=== PATIENT | female | born 1935 | race Caucasian/White ===

== ENCOUNTER 2016-06-19 11:34 | Outpatient (CLI) ==
[2012-11-01 11:54] VITALS: TEMP 96.9
[2016-06-19 12:08] VITALS: BMI 33.7
== END 2016-06-19 11:35 ==
LOC: AMBL 11:34
PROVIDERS: ATTEND Internal Medicine
DX: S09.90XA Unspecified injury of head, initial encounter (principal); W19.XXXA Unspecified fall, initial encounter; Y92.129 Unspecified place in nursing home as the place of occurrence of the external cause; F03.90 Unspecified dementia, unspecified severity, without behavioral disturbance, psychotic disturbance, mood disturbance, and anxiety

== ENCOUNTER 2016-06-19 11:49 | Emergency (ER) ==
[2016-06-19 12:08] VITALS: BP 122/86; TEMP 98.8; BMI 33.7
--- NOTE | 2016-06-19 12:54 | CT ---
EXAM: CT Head HISTORY: Pain, fall COMPARISON: One 06/30/2015 TECHNIQUE: CT head performed without contrast FINDINGS: There is no mass effect, midline shift, or intracranial hemmorhage. Booker white different iation is preserved. There is no extra-axial collection. The ventricles, sulci, and basal cisterns are patent and symmetric. There is chronic ischemic disease of the white matter and cerebral volum e loss. There is no depressed calvarial fracture. The mastoid air cells are clear. The visualized paranasal sinuses are clear. There are intracranial atherosclerotic calcifications. Small left parie compa scalp hematoma. IMPRESSION: 1. No acute intracranial abnormality. 2. Small left parietal scalp hematoma. No depressed calvarial fracture. 3. Chronic ischemic disease of the white matter and cerebral volume loss.
--- NOTE | 2016-06-19 12:55 | CT ---
EXAM: CT thoracic spine without contrast. HISTORY: Back pain. COMPARISON: 05/12/2015. TECHNIQUE: Multiple axial images of the thoracic spine were obtained without intravenous contrast. Images were reformatted in the sagittal and coronal planes. FINDINGS: Old mild superior endplate compression deformity of T8 is stable. Vertebral body heights are otherwise normal. Alignment is maintained. There is multilevel loss of disc height with assoc iated endplate osteophyte formation, greater in the lower thoracic spine. No significant central ca nal stenosis detected. Pacemaker leads are partially imaged. Visualized lungs are clear. Atherosc lerotic calcifications are present. IMPRESSION: 1. No acute abnormality of the thoracic spine. 2. Stable old T8 compression deformity. 3. Multilevel degenerative disc disease.
--- NOTE | 2016-06-19 13:04 | CT ---
EXAM: CT cervical spine without contrast. HISTORY: Neck pain post fall COMPARISON: CT cervical spine 05/12/2015 TECHNIQUE: Serial axial images of the cervical spine were obtained from the skull base through the lung apices without contrast. These were viewed in multiple planes. FINDINGS: There is no acute compression fracture or subluxation. There is mild disc space narrowin g and anterior posterior disc osteophyte formation noted at C4 through C7. There is scattered multi level facet arthropathy. The odontoid process demonstrates no displaced fracture with scattered deg enerative disease at its articulation with C1 ring. There is stable levoscoliosis. C2-C3: Small broad-based disc bulge with no central or neural foraminal narrowing. C3-C4: Central disc protrusion with no central or neural foraminal narrowing. C4-C5: Posterior disc osteophyte and mild facet arthropathy with no central or neural foraminal madeline rowing. C5-C6: Posterior disc osteophyte and facet arthropathy contribute to mild to moderate left neural f oraminal narrowing. C6-C7: Posterior disc osteophyte and facet arthropathy with mild left neural foraminal narrowing. The soft tissues are unremarkable. IMPRESSION: 1. No acute compression fracture or subluxation of the cervical spine. 2. Stable levoscoliosis. 3. Multilevel degenerative disease with no greater than mild to moderate narrowing at any level.
--- NOTE | 2016-06-19 13:05 | ED.PDOC ---
General ED Provider: Dr. KAN CALL Chief Complaint: Fall Stated Complaint: fall head and back pain Time Seen by Physician: 12:00 Mode of Arrival: Ambulance Information Source: Patient, Long-Term, EMT Exam Limitations: No limitations Primary Care Provider: BERNA GIBBONS Nursing and Triage Documentation Reviewed and Agree: Yes Trauma/Injury Complaint Exam - Trauma Complaint/Exam Location of Pain or Injury: Reports: Head, Neck, Back Mechanism of Injury: Reports: Fall (ground level) Onset/Duration: today Symptoms Are: Still present Initial Severity: Mild Current Severity: Mild Character: Reports: Aching Aggravating: Reports: None Alleviating: Reports: None Associated Signs and Symptoms: Denies: LOC, Confusion, Memory loss, Lethargy, Vomiting, Bleeding, Bruising, Swelling, Extremity disuse, Painful respiration, Hoarseness, Dysphagia, Hemoptysis, Significant blood loss Penetrating Injury Risk Factors: Reports: None Related Surgical History: Reports: None Nexus Low Risk Criteria: No evidence of intoxicat., No Altered LOC, No focal neuro deficit, No distracting injuries Immobilization Removed Post Exam: No Glascow Coma Scale (see protocol): 15 Trauma Findings: Absent: [place] eyes, Hemotympanum, Nasal deformity, Dental tenderness, Dental malocclusion, Neck tenderness, Neck spasm, Crepitus, Airway obstructed, Labored respirations, Decreased breath sounds, Muffled heart sounds , Weak pulses, Absent pulses, Abdominal distention, Pelvic tenderness, Pelvic instability Review of Systems - Review Of Systems Constitutional: Reports: No symptoms Eyes: Reports: No symptoms Ears, Nose, Mouth, Throat: Reports: No symptoms Respiratory: Reports: No symptoms Cardiac: Reports: No symptoms GI: Reports: No symptoms : Reports: No symptoms Musculoskeletal: Reports: Back pain, Neck pain Skin: Reports: No symptoms Neurological: Reports: Headache Endocrine: Reports: No symptoms Hematologic/Lymphatic: Reports: No symptoms All Other Systems: Reviewed and Negative Past Medical History - Past Medical History Endocrine: Reports: DM 2 Cardiovascular: Reports: CHF Respiratory: Reports: None Hematological: Reports: None Gastrointestinal: Reports: None Genitourinary: Reports: None Neuro/Psych: Reports: CVA, Dementia Musculoskeletal: Reports: Arthritis Cancer: Reports: Other Last Menstrual Period: N/A Other Pertinent Past Medical History: pacerf - Surgical History General Surgical History: Reports: Hysterectomy, Orthopedic, Back Surgery, Other - Family History Family History: Reports: Unknown - Social History Smoking Status: Former smoker Hx Substance Use: No Alcohol Screening: None Physical Exam - Physical Exam Appearance: Well-appearing, No pain distress, Well-nourished Eyes: KIERSTEN, EOMI, Conjunctiva clear ENT: Ears normal, Nose normal, Oropharynx normal Respiratory: Airway patent, Breath sounds clear, Breath sounds equal, Respirations nonlabored Cardiovascular: RRR, Pulses normal, No rub, No murmur GI/: Soft, Nontender, No masses, Bowel sounds normal, No Organomegaly Musculoskeletal: Normal strength, ROM intact, No edema, No calf tenderness Skin: Warm, Dry, Normal color Neurological: Sensation intact, Motor intact, Reflexes intact, Cranial nerves intact, Alert, Oriented Psychiatric: Affect appropriate, Mood appropriate Interpretation - Radiology Interpretation Radiology Interpretation By: Radiologist Critical Care Note - Critical Care Note Total Time (mins): 0 Course - Course Orders, Labs, Meds: Orders Category Date Time Status CT CERVICAL SPINE W/O CONTRAST Stat RADS 06/19/16 12:[address] HEAD W/O CONTRAST Stat RADS 06/19/16 12:[address] LUMBAR SPINE W/O CONTRAST Stat RADS 06/19/16 12:[address] THORACIC SPINE W/O CONTRAST Stat RADS 06/19/16 12:03 Completed Vital Signs: Temp Pulse Resp BP Pulse Ox 06/19/16 11:50 98.8 F 93 H 16 122/86 97 Departure - Departure Time of Disposition: 14:00 Disposition: HOME SELF-CARE Discharge Problem: Chronic neck and back pain Instructions: Neck Pain (ED), Acute Low Back Pain (ED), Chronic Back Pain (ED) Condition: Good Pt referred to PMD for follow-up: No Additional Instructions: Please call your Family Physician as soon as possible to schedule a follow-up appointment. Allergies/Adverse Reactions: Allergies codeine Adverse Reaction (Verified 06/19/16 12:08) Home Medications: Ambulatory Orders Acetaminophen [Tylenol] 2 tab PO Q4H PRN 10/27/12 Aspirin [Emeka Chewable] 81 mg PO DAILY 10/27/12 Calcium Carbonate/Vitamin D3 [Calcium 600 + Vit D 400 Tablet] 1 each PO BID Citalopram Hydrobromide [Citalopram HBr] 20 mg PO DAILY 10/27/12 Furosemide [Lasix Tab] 40 mg PO QDAC 10/27/12 Galantamine HBr [Razadyne ER] 16 mg PO DAILY 10/27/12 Metoprolol Tartrate [Lopressor] 25 mg PO BID 10/27/12 Ferrous Sulfate [Iron] 325 mg PO BID 01/28/13 Potassium Chloride [K-Dur] 10 meq PO DAILY 01/28/13 Insulin Glargine,Hum.rec.anlog [Lantus] 48 unit SUBCUT BEDTIME 12/26/13 Multivitamins,Therapeutic [Thera-Tabs] 1 each PO DAILY 12/26/13 Memantine HCl [Namenda Xr] 28 mg PO DAILY #30 cap.spr.24 12/27/13 Sucralfate [Carafate] 1 gm PO BID 01/03/14 Gabapentin [Neurontin] 100 mg PO TID #1 capsule 01/04/14 Metolazone [Zaroxolyn] 2.5 mg PO MOWEFR PRN #1 tablet 01/04/14 Guaifenesin 10 ml PO Q4HR PRN 05/12/15 Rosuvastatin Calcium [Crestor] 20 mg PO BEDTIME 05/12/15 Ca/D3/Mag#11/Zinc/Manager Pet/Joey/Bor [Caltrate 600+D Plus Tablet] 1 each PO BID Donepezil HCl [Aricept] 10 mg PO DAILY 06/19/16 Fenofibrate 54 mg PO BEDTIME 06/19/16 Insulin Lispro [Humalog] 10 unit SQ TID 06/19/16 Nystatin [Nystop Powder] 1 applic TP Q8H PRN 06/19/16
--- NOTE | 2016-06-19 13:16 | CT ---
EXAM: CT lumbar spine without contrast. HISTORY: Lower back pain post fall COMPARISON: CT lumbar spine 05/12/[address] abdomen pelvis 01/03/2014 TECHNIQUE: Serial axial images of the spine were obtained from the lower thoracic spine through the pelvis without contrast. These were viewed in multiple planes. FINDINGS: There is no acute compression fracture. Posterior fusion hardware from L3-L5 are present with disc spacer material noted L4-L5. There is significant narrowing and osteophyte formation not ed at L5-S1 with 0.5 cm of anterolisthesis at this level. There is 0.2 cm of anterolisthesis of L4 on L5. There is severe disc space narrowing at L2-L3. There are endplate erosions and osteophytes present at this level. L1-L2: Broad-based disc bulge and facet arthropathy with no significant central or neural foraminal narrowing. L2-L3: Severe disc space narrowing with osteophyte formation and facet arthropathy with artifact fro m the adjacent metallic screws with bilateral moderate neural foraminal narrowing. L3-L4: There are laminectomy changes noted at this level with stable posterior granulation tissue. This demonstrates mild mass effect on the adjacent spinal cord with no central or neural foraminal n arrowing. L4-L5: There is degenerative disease with osteoarthropathy and low attenuation material posteriorly most consistent with granulation tissue unchanged from prior exam. The central space and neural for amen are not able to be evaluated due to artifact. L5-S1: Facet arthropathy and mild anterior listhesis are noted with no significant central or neural foraminal narrowing. Limited views of the soft tissues demonstrates unchanged nonobstructing left renal stones. There is moderate atherosclerotic disease. IMPRESSION: 1. No acute compression fracture with stable areas of anterolisthesis of L4 on L5 and L5 and S1. 2. Postoperative changes and posterior fusion hardware from L3-L5 with no significant change in com parison to prior with no fracture of the hardware or evidence of loosening. There is stable posteri or granulation tissue at the sites of laminectomy with minimal mass effect on the spinal cord noted at L3-L4 which has been present since 05/12/2015. 3. Multilevel areas of neural foraminal narrowing as detailed above.
== END 2016-06-19 14:04 | disposition home or self-care (01) ==
LOC: ED 11:49
DX: M54.2 Cervicalgia (principal); M54.9 Dorsalgia, unspecified; R51 Headache; M19.90 Unspecified osteoarthritis, unspecified site; F03.90 Unspecified dementia, unspecified severity, without behavioral disturbance, psychotic disturbance, mood disturbance, and anxiety; E11.9 Type 2 diabetes mellitus without complications; W18.30XA Fall on same level, unspecified, initial encounter; Y92.129 Unspecified place in nursing home as the place of occurrence of the external cause; Z79.899 Other long term (current) drug therapy; Z86.73 Personal history of transient ischemic attack (TIA), and cerebral infarction without residual deficits
CPT/HCPCS: 99283

== ENCOUNTER 2017-04-26 19:24 | Inpatient (IN) ==
[2017-04-26] MEDS ORDERED: VANCOMYCIN 1,000 MG in SODIUM CHLORIDE 200 ML IV STA (19:26)
[2017-04-26] MEDS ORDERED: SODIUM CHLORIDE 1,000 ML IV STA (19:26)
[2017-04-26] MEDS ORDERED: VANCOMYCIN ONE (19:48)
--- NOTE | 2017-04-26 20:00 | CT ---
Exam: CT thorax without IV contrast. Clinical indication: Cough and fever. TECHNIQUE: Axial unenhanced CT images of the thorax were obtained followed by coronal and sagittal r eformats. Comparison is made to the prior study dated 07/29/2014. Findings: There is respiratory motion which hinders accurate assessment of fine detail. The pulmonary parenchyma is grossly unremarkable. There is no pleural abnormality. There is a left-sided implanted cardiac device. There are coronary artery calcifications. There are no enlarged axillary, hilar or mediastinal lymph nodes, by size criteria. The visualized portions of the upper abdomen are unremarkable. There is multilevel thoracic degenerative changes. There is moderate right and mild left glenohumera l secondary degenerative osteoarthritic changes. Impression: 1. 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 2. Coronary artery calcifications. 3. Otherwise unremarkable CT of the thorax.
[2017-04-26] MEDS ORDERED: TAMIFLU PO STA (20:02)
--- NOTE | 2017-04-26 20:02 | CT ---
EXAM: CT head without contrast. HISTORY: Change in mentation. PROCEDURE: Contiguous axial CT images of the head without contrast with coronal and sagittal reforma ts. FINDINGS: Comparison made with CT head of 06/19/2016. There is diffuse cerebral atrophy. The ventric les are stable in size. The basal cisterns are normal in size and configuration. No evidence of mas s or midline shift. No intracranial hemorrhage or evidence of large vessel infarct. No extra-axial fluid collection. There are chronic small vessel ischemic changes in the white matter. There is muco katlyn thickening in the paranasal sinuses. The mastoid air cells are well-aerated. Impression: Stable CT head compared with CT of 06/19/2016. No intracranial hemorrhage or evidence of large vessel infarct. Chronic small vessel ischemic changes. Diffuse cerebral atrophy. Paranasal sinusitis.
[2017-04-26] MEDS ORDERED: URO-JET MUCOUSMEMB STA (20:11)
--- NOTE | 2017-04-26 20:51 | ED.PDOC ---
General ED Provider: Dr. RAISA QUIROZ-ER Chief Complaint: Altered Mental Status Stated Complaint: sent from [facility] with cough, congestion and low grade temp and confusion Time Seen by Physician: 19:30 Mode of Arrival: Ambulance Information Source: Patient, Family, Intermediate, EMT Exam Limitations: No limitations Primary Care Provider: BERNA MCLAUGHLIN Nursing and Triage Documentation Reviewed and Agree: Yes Respiratory Complaint Exam - Respiratory Complaint/Exam Onset/Duration: less than 24hrs Timing: Constant Initial Severity: Mild Current Severity: Mild Location: Chest Character: Reports: Non-productive cough Associated Signs and Symptoms: Reports: Fever, URI, Nasal congestion, Decreased oral intake. Denies: Rapid breathing, Dyspnea, Chills, Chest pain, Pleuritic chest pain, Wheezing, Hemoptysis, Dizziness, Calf pain, Calf swelling, Edema, Hoarseness, Sinus discomfort, Vomiting, Sore throat, Weight loss, Increased thirst, Increased urination Related History: Reports: Similar episode History of Healthcare-Acquired Pneumonia: Lives at [facility] Cardiac Risk Factors: Reports: None Home Oxygen Use: No Recent Stress Test: No Recent Echo/LV Function: No Current Antibiotic Use: No Current Asthma Medication Use: No Respiratory Distress: None Inadequate Respiratory Effort: No Dysphagia Present: No Stridor Present: No JVD Present: No Accessory Muscle Use: No Diminished Breath Sounds: No Sinus Tenderness: None Grunting Respirations: No Kussmaul Respirations: No Differential Diagnoses: Pneumonia, Influenza Non-Traumatic Chest Pain Syncope: EKG Performed Review of Systems - Review Of Systems Constitutional: Reports: Chills, Fever, Loss of appetite Eyes: Reports: No symptoms Ears, Nose, Mouth, Throat: Reports: No symptoms Respiratory: Reports: Cough Cardiac: Reports: No symptoms GI: Reports: No symptoms : Reports: No symptoms Musculoskeletal: Reports: No symptoms Skin: Reports: No symptoms Neurological: Reports: Cognitive dysfunction, Weakness Endocrine: Reports: No symptoms Hematologic/Lymphatic: Reports: No symptoms All Other Systems: Reviewed and Negative Past Medical History - Past Medical History Previously Healthy: No Endocrine: Reports: DM 2 Cardiovascular: Reports: CHF Respiratory: Reports: None Hematological: Reports: None Gastrointestinal: Reports: None Genitourinary: Reports: None Neuro/Psych: Reports: CVA, Dementia Musculoskeletal: Reports: Arthritis Cancer: Reports: Other Last Menstrual Period: UNKNOWN Other Pertinent Past Medical History: pacerf - Surgical History General Surgical History: Reports: Hysterectomy, Orthopedic, Back Surgery, Other - Family History Family History: Reports: Unknown - Social History Smoking Status: Former smoker Hx Substance Use: No Alcohol Screening: None Lives: With family - Immunizations Tetanus Shot up to Date: (UNKNOWN) Physical Exam - Physical Exam Appearance: Well-appearing, No pain distress, Well-nourished Eyes: KIERSTEN, EOMI, Conjunctiva clear ENT: Ears normal, Nose normal, Oropharynx normal Neck: Supple Respiratory: Airway patent, Breath sounds clear, Breath sounds equal, Respirations nonlabored Cardiovascular: RRR, Pulses normal, No rub, No murmur GI/: Soft, Nontender, No masses, Bowel sounds normal, No Organomegaly Musculoskeletal: Normal strength Skin: Warm Neurological: Sensation intact, Alert, Disoriented Psychiatric: Affect appropriate Interpretation - Radiology Interpretation Radiology Interpretation By: Radiologist Radiology Results: Negative Exam Interpreted: CT Scan Physician Notification - Case Discussed Physician Notified: dr [email or web address] Time of Notification: 21:13 Critical Care Note - Critical Care Note Total Time (mins): 0 Course - Course Hematology/Chemistry: 04/26/17 19:50 04/26/17 19:50 Orders, Labs, Meds: Lab Review 04/26/17 04/26/17 04/26/17 19:25 19:35 19:50 WBC 9.49 RBC 4.07 L Hgb 12.9 Hct 38.5 MCV 94.6 MCH 31.7 H MCHC 33.5 RDW Coeff of Harpal 14.2 Plt Count 211 Immature Gran % (Auto) 0.5 Neut % (Auto) 73.7 Lymph % (Auto) 17.0 [place] % (Auto) 8.4 Eos % (Auto) 0.1 Baso % (Auto) 0.3 Immature Gran # (Auto) 0.1 Neut # 7.0 H Lymph # 1.6 [place] # 0.8 Eos # 0.0 Baso # 0.0 Puncture Site Lb O2 Saturation 100.0 ABG pH 7.498 H ABG pCO2 34.0 L ABG pO2 104.0 H ABG HCO3 26.4 H ABG Total CO2 27 ABG Base Excess 3 H Zuhair Test + FiO2 % 21.0 Sodium Potassium Chloride Carbon Dioxide Anion Gap BUN Creatinine Estimated GFR (MDRD) BUN/Creatinine Ratio Glucose Lactic Acid Calcium Total Bilirubin AST ALT Alkaline Phosphatase B-Natriuretic Peptide Total Protein Albumin Globulin Albumin/Globulin Ratio Procalcitonin Urine Color Urine Clarity Urine pH Ur Specific [place] Urine Protein Urine Glucose (UA) Urine Ketones Urine Blood Urine Nitrite Urine Bilirubin Urine Urobilinogen Ur Leukocyte Esterase Urine Microscopic RBC Urine Microscopic WBC Ur Squamous Epith Cells Urine Bacteria Urine Mucus Influenza A (Rapid) Positive H Influenza B (Rapid) Negative 04/26/17 04/26/17 04/26/17 19:50 19:50 19:50 WBC RBC Hgb Hct MCV MCH MCHC RDW Coeff of Harpal Plt Count Immature Gran % (Auto) Neut % (Auto) Lymph % (Auto) [place] % (Auto) Eos % (Auto) Baso % (Auto) Immature Gran # (Auto) Neut # Lymph # [place] # Eos # Baso # Puncture Site O2 Saturation ABG pH ABG pCO2 ABG pO2 ABG HCO3 ABG Total CO2 ABG Base Excess Zuhair Test FiO2 % Sodium 142 Potassium 4.1 Chloride 103 Carbon Dioxide 26 Anion Gap 17.1 BUN 27 H Creatinine 2.08 H Estimated GFR (MDRD) 23.00 BUN/Creatinine Ratio 12.98 Glucose 143 H Lactic Acid 11.8 Calcium 10.1 Total Bilirubin 0.65 AST 30 ALT 13 Alkaline Phosphatase 52 L B-Natriuretic Peptide Total Protein 7.8 Albumin 3.5 Globulin 4.3 Albumin/Globulin Ratio 0.81 Procalcitonin < 0.05 Urine Color Urine Clarity Urine pH Ur Specific [place] Urine Protein Urine Glucose (UA) Urine Ketones Urine Blood Urine Nitrite Urine Bilirubin Urine Urobilinogen Ur Leukocyte Esterase Urine Microscopic RBC Urine Microscopic WBC Ur Squamous Epith Cells Urine Bacteria Urine Mucus Influenza A (Rapid) Influenza B (Rapid) 04/26/17 04/26/17 19:50 20:43 WBC RBC Hgb Hct MCV MCH MCHC RDW Coeff of Harpal Plt Count Immature Gran % (Auto) Neut % (Auto) Lymph % (Auto) [place] % (Auto) Eos % (Auto) Baso % (Auto) Immature Gran # (Auto) Neut # Lymph # [place] # Eos # Baso # Puncture Site O2 Saturation ABG pH ABG pCO2 ABG pO2 ABG HCO3 ABG Total CO2 ABG Base Excess Zuhair Test FiO2 % Sodium Potassium Chloride Carbon Dioxide Anion Gap BUN Creatinine Estimated GFR (MDRD) BUN/Creatinine Ratio Glucose Lactic Acid Calcium Total Bilirubin AST ALT Alkaline Phosphatase B-Natriuretic Peptide 287 H Total Protein Albumin Globulin Albumin/Globulin Ratio Procalcitonin Urine Color Yellow Urine Clarity Cloudy Urine pH 5.5 Ur Specific [place] 1.025 Urine Protein 2+ Urine Glucose (UA) Negative Urine Ketones Negative Urine Blood 2+ Urine Nitrite Negative Urine Bilirubin Negative Urine Urobilinogen 0.2 Ur Leukocyte Esterase 2+ Urine Microscopic RBC 5-10 Urine Microscopic WBC 50-100 Ur Squamous Epith Cells 10-20 Urine Bacteria 1+ Urine Mucus 1+ Influenza A (Rapid) Influenza B (Rapid) Orders Category Date Time Status ABG DRAW REQUEST Stat CARDIO 04/26/17 19:25 Ordered EKG-(ED ONLY) Stat CARDIO 04/26/17 19:25 Ordered Catheter [ED CATHETER INSERTION AND CARE] .ONCE EMERGENCY 04/26/17 20:11 Active IV [ED IV/MEDIPORT/POWERPORT] .ONCE EMERGENCY 04/26/17 19:26 Active ABG Stat LAB 04/26/17 19:25 Completed B-TYPE NATRIURETIC PEPTIDE Stat LAB 04/26/17 19:50 Completed BLOOD CULTURE (ED ONLY) Stat LAB 04/26/17 19:50 Received CBC W/ AUTO DIFF Stat LAB 04/26/17 19:50 Completed COMPREHENSIVE METABOLIC PANEL Stat LAB 04/26/17 19:50 Completed LACTIC ACID Stat LAB 04/26/17 19:50 Completed PROCALCITONIN Stat LAB 04/26/17 19:50 Completed RAPID FLU A/B Stat LAB 04/26/17 19:35 Completed URINALYSIS C & S IF INDICATED Stat LAB 04/26/17 20:43 Completed URINE CULTURE Stat LAB 04/26/17 20:43 Received 0.9 % Sodium Chloride [Saline Flush] MEDS 04/26/17 19:26 Ordered 1 syr IVF PRN PRN Ceftriaxone Sodium [Rocephin] 1 gm MEDS 04/26/17 21:06 Active 0.9 % Sodium Chloride [Sodium Chloride] 50 ml IV ONCE Lidocaine HCl [Uro-Jet] MEDS 04/26/17 20:11 Discontinued 10 ml [id number] ONCE STA Oseltamivir Phosphate [Tamiflu] MEDS 04/26/17 20:02 Discontinued 75 mg PO ONCE STA Sodium Chloride 0.9% [Sodium Chloride] 1,000 ml MEDS 04/26/17 19:26 Active IV 100 mls/hr Vancomycin HCl [Vancomycin] MEDS 04/26/17 19:48 Discontinued 1,000 mg .ROUTE .STK-MED ONE Vancomycin HCl [Vancomycin] 1,000 mg MEDS 04/26/17 19:26 Active 0.9 % Sodium Chloride [Sodium Chloride] [address] CHEST W/O CONTRAST Stat RADS 04/26/17 19:[address] HEAD W/O CONTRAST Stat RADS 04/26/17 19:30 Completed Medications Generic Name Dose Route Start Last Admin Trade Name Freq PRN Reason Stop Dose Admin Sodium Chloride 1,000 mls @ 100 mls/hr 04/26/17 19:26 04/26/17 19:57 Sodium Chloride IV 04/27/17 05:25 100 mls/hr .Q10H STA Administration Vancomycin HCl 1,000 mg/ 200 mls @ 100 mls/hr 04/26/17 19:26 04/26/17 20:00 Sodium Chloride IV 04/26/17 21:25 100 mls/hr ONCE STA Administration Ceftriaxone Sodium 1 gm/ 50 mls @ 75 mls/hr 04/26/17 21:06 Sodium Chloride IV 04/26/17 21:45 ONCE STA Sodium Chloride 1 syr 04/26/17 19:26 Saline Flush IVF PRN PRN To flush IV Discontinued Medications Generic Name Dose Route Start Last Admin Trade Name Freq PRN Reason Stop Dose Admin Lidocaine HCl 10 ml 04/26/17 20:11 04/26/17 20:59 Uro-Jet MUCOUSMEMB 04/26/17 20:12 Not Given ONCE STA Oseltamivir Phosphate 75 mg 04/26/17 20:02 04/26/17 20:15 Tamiflu PO 04/26/17 20:03 75 mg ONCE STA Administration Vital Signs: Temp Pulse Resp BP Pulse Ox 04/26/17 19:28 99 F 75 20 114/64 91 L Departure - Departure Time of Disposition: 21:14 Disposition: ADMITTED INPATIENT Discharge Problem: Encephalopathy acute, Influenza A UTI (urinary tract infection) Qualifiers: Urinary tract infection type: site unspecified Hematuria presence: without hematuria Qualified Code(s): N39.0 - Urinary tract infection, site not specified Instructions: Urinary Tract Infection in Women (ED) Condition: Poor Pt referred to PMD for follow-up: Yes Allergies/Adverse Reactions: Allergies codeine Adverse Reaction (Verified 04/26/17 19:42) Home Medications: Ambulatory Orders Acetaminophen [Tylenol] 2 tab PO Q4H PRN 10/27/12 Aspirin [Emeka Chewable] 81 mg PO DAILY 10/27/12 Calcium Carbonate/Vitamin D3 [Calcium 600 + Vit D 400 Tablet] 1 each PO BID Citalopram Hydrobromide [Citalopram HBr] 10 mg PO DAILY 10/27/12 Furosemide [Lasix Tab] 40 mg PO QDAC 10/27/12 Galantamine HBr [Razadyne ER] 16 mg PO DAILY 10/27/12 Metoprolol Tartrate [Lopressor] 25 mg PO BID 10/27/12 Ferrous Sulfate [Iron] 325 mg PO BID 01/28/13 Potassium Chloride [K-Dur] 10 meq PO DAILY 01/28/13 Insulin Glargine,Hum.rec.anlog [Lantus] 48 unit SUBCUT BEDTIME 12/26/13 Multivitamin,Therapeutic [Thera-Tabs] 1 each PO DAILY 12/26/13 Gabapentin [Neurontin] 100 mg PO TID #1 capsule 01/04/14 Metolazone [Zaroxolyn] 2.5 mg PO MOWEFR PRN #1 tablet 01/04/14 Guaifenesin 10 ml PO Q4HR PRN 05/12/15 Rosuvastatin Calcium [Crestor] 20 mg PO BEDTIME 05/12/15 Fenofibrate 54 mg PO BEDTIME 06/19/16 Insulin Lispro [Humalog] 10 unit SQ TID 06/19/16 Nystatin [Nystop Powder] 1 applic TP Q8H PRN 06/19/16 Memantine HCl 5 mg PO BID 04/26/17 Pantoprazole Sodium [Protonix] 40 mg PO DAILY 04/26/17 Disposition Discussed With: Family
[2017-04-26] MEDS ORDERED: ROCEPHIN 1 GM in SODIUM CHLORIDE 50 ML IV STA (21:06)
[2017-04-26] MEDS ORDERED: TYLENOL PO PRN (21:15)
[2017-04-26] MEDS ORDERED: ROBITUSSIN SUGAR-FREE PO PRN (21:18)
[2017-04-26 22:55] VITALS: BMI 38.7
[2017-04-26] MEDS ORDERED: ROCEPHIN ONE (23:51)
[2017-04-27] MEDS: HUMULIN R SUBCUT PRN ×3 (06:18→16:44)
[2017-04-27] MEDS ORDERED: MULTIVITAMIN THERAPEUTIC PO SCH (09:00)
[2017-04-27] MEDS ORDERED: NON-FORMULARY MEDICATION (Ferrous Sulfate [Iron] 325 MG) PO SCH (09:00)
[2017-04-27] MEDS ORDERED: MEMANTINE HCL 5 MG PO SCH (09:00)
[2017-04-27] MEDS ORDERED: TAMIFLU PO SCH (09:00)
[2017-04-27] MEDS: CALCIUM 500 + VIT D 200 MG TABLET PO SCH ×2 (09:19→21:35)
[2017-04-27] MEDS: ASPIRIN CHEWABLE PO SCH (09:19)
[2017-04-27] MEDS: MULTIVITAMIN TABLET PO SCH (09:19)
[2017-04-27] MEDS: CELEXA PO SCH (09:19)
[2017-04-27] MEDS: TAMIFLU PO SCH ×2 (09:19→21:36)
[2017-04-27] MEDS: LOPRESSOR PO SCH ×2 (09:20→21:35)
[2017-04-27] MEDS: NAMENDA PO SCH ×2 (09:20→21:35)
[2017-04-27] MEDS: PROTONIX PO SCH (09:20)
[2017-04-27] MEDS: LOVENOX SUBCUT SCH (09:20)
[2017-04-27] MEDS: FERROUS SULFATE PO SCH ×2 (09:21→21:35)
[2017-04-27] MEDS: NEURONTIN PO SCH ×3 (09:21→21:35)
[2017-04-27] MEDS: SODIUM CHLORIDE 1,000 ML IV SCH ×2 (10:38)
[2017-04-27] MEDS: GALANTAMINE HBR 16 MG PO SCH (10:38)
--- NOTE | 2017-04-27 11:57 | PCM.PROG ---
Attending Provider: ATTENDING PROVIDER: Dr. BERNA GIBBONS This patient is seen with Ani Sanchez, Nurse Practitioner. DATE OF SERVICE: 04/27/17 SUBJECTIVE: This 81 year old WHITE/ F was hospitalized 04/26/17. The patient is resting comfortably. She has a low grade temperature, in no distress. REVIEW OF SYSTEMS: CONSTITUTIONAL: No night sweats. Positive for Fever, weakness, malaise. HEENT: Eyes: No visual changes. No eye pain. No eye discharge. ENT: No runny nose. No epistaxis. No sinus pain. No odynophagia. No congestion. RESPIRATORY: Positive for cough and congestion. No hemoptysis. No shortness of breath. CARDIOVASCULAR: No angina symptoms. No CHF symptoms. No atypical chest pain for CAD. No palpitations. No orthopnea.. GASTROINTESTINAL: No abdominal pain. No nausea or vomiting. No diarrhea or constipation. No hematemesis. No hematochezia. GENITOURINARY: No urgency. No frequency. No dysuria. No hematuria. No obstructive symptoms. No discharge. No pain. No significant abnormal bleeding. MUSCULOSKELETAL: No musculoskeletal pain; no joint swelling. NEUROLOGICAL: The patient is resting comfortably, unable to communicate. No headache. No neck pain. No syncope. No seizures. No dizziness. PSYCHIATRIC: Not anxious. No depression. No suicidal thoughts. No homicidal thoughts. SKIN: No rash. No lesions. No wounds. ENDOCRINE: No unexplained weight loss. No weight gain. HEMATOLOGIC/LYMPHATIC: No anemia. No purpura. No petechiae. No prolonged or excessive bleeding. No palpable lymph nodes. PHYSICAL EXAMINATION: GENERAL: The patient is resting comfortably lying in bed in no distress. VITAL SIGNS: Temperature 100.0 F, Pulse 78, Respiratory Rate 20, BP 111/54, Pulse Ox 94% HEENT: Head normocephalic, atraumatic. Eyes: Extraocular muscles are intact. Pupils are equal, round and reactive to light and accommodation. Ears: No lesions. Nose appeared normal. Throat: No exudate or erythema. NECK: Supple. No JVD, no carotid bruit. No lymphadenopathy or thyromegaly. LUNGS: Diminished breath sounds. Clear to auscultation. Percussion note normal. Chest symmetrical. HEART: S1, S2, no S3. No murmurs. No cyanosis or clubbing. No ascites. Pulses: Dorsalis pedis and posterior tibial pulses +1 to +2 both sides. ABDOMEN: Soft. Non-tender. Bowel sounds active. No CVA tenderness. No mass felt. EXTREMITIES: No edema. Full range of motion of all extremities, equal. NEUROLOGIC: No focal deficit. Cranial nerves II through XII are grossly intact. No headache, no double vision or headache. SKIN: Not dry. Intact. Turgor-normal. LYMPHATIC: No palpable lymph nodes/no lymphedema. MUSCULOSKELETAL: Normal joints with no swelling. Muscle tone is normal. LAB REVIEW: 04/27/17 05:00 04/27/17 05:00 04/27/17 05:00: Sodium 143, Potassium 3.6, Chloride 106, Carbon Dioxide 23, Anion Gap 17.6, BUN 27 H, Creatinine 1.87 H, Estimated GFR (MDRD) 26.00, BUN/ Creatinine Ratio 14.43, Glucose 163 H, Calcium 9.5, Total Bilirubin 0.50, AST 30 , ALT 14, Alkaline Phosphatase 48 L, Total Protein 7.1, Albumin 3.3 L, Globulin 3.8, Albumin/Globulin Ratio 0.87 04/27/17 05:00: WBC 7.64, RBC 3.84 L, Hgb 12.1, Hct 36.0 L, MCV 93.8, MCH 31.5 H , MCHC 33.6, RDW Coeff of Harpal 14.2, Plt Count 194, Immature Gran % (Auto) 0.3, Neut % (Auto) 74.1, Lymph % (Auto) 15.1, [place] % (Auto) 10.1 H, Eos % (Auto) 0.1 , Baso % (Auto) 0.3, Immature Gran # (Auto) 0.0, Neut # 5.7, Lymph # 1.2, [place] # 0.8, Eos # 0.0, Baso # 0.0 ASSESSMENT: 1. Influenza A 2. Mild dehydration 3. Chronic kidney disease 4. Dementia 5. Unable to communicate 6. History of CVA PLAN: Continue same plan Plan and coordination of the patient's care discussed in the presence of Pediatric Psychiatrist and nurse. CONDITION: Stable SCRIBED BY: PALOMA LEONG Embossing Machine Tender scribed while in presence of service performed by Dr. Gibbons/Ani Sanchez APRN on 04/27/17 ([id number])
[2017-04-27] MEDS ORDERED: NON-FORMULARY MEDICATION (Rosuvastatin Calcium [Crestor] 20 MG) PO SCH (21:00)
[2017-04-27] MEDS: LANTUS SUBCUT SCH (21:34)
[2017-04-27] MEDS: CRESTOR PO SCH (21:34)
[2017-04-27] MEDS: TRIGLIDE PO SCH (21:35)
[2017-04-27] MEDS: ROCEPHIN 1 GM in SODIUM CHLORIDE 50 ML IV SCH (21:36)
[2017-04-28] MEDS: SODIUM CHLORIDE 1,000 ML IV SCH ×3 (00:59→14:03)
[2017-04-28] MEDS: HUMULIN R SUBCUT PRN ×4 (06:13→21:09)
[2017-04-28] MEDS: PROTONIX PO SCH (06:13)
[2017-04-28] MEDS: ASPIRIN CHEWABLE PO SCH (10:08)
[2017-04-28] MEDS: MULTIVITAMIN TABLET PO SCH (10:09)
[2017-04-28] MEDS: CALCIUM 500 + VIT D 200 MG TABLET PO SCH ×2 (10:09→21:08)
[2017-04-28] MEDS: FERROUS SULFATE PO SCH ×2 (10:09→21:09)
[2017-04-28] MEDS: NEURONTIN PO SCH ×3 (10:09→21:09)
[2017-04-28] MEDS: LOPRESSOR PO SCH ×2 (10:09→21:08)
[2017-04-28] MEDS: CELEXA PO SCH (10:09)
[2017-04-28] MEDS: NAMENDA PO SCH ×2 (10:09→21:08)
[2017-04-28] MEDS: TAMIFLU PO SCH ×2 (10:09→21:09)
[2017-04-28] MEDS: LOVENOX SUBCUT SCH (10:10)
[2017-04-28] MEDS: GALANTAMINE HBR 16 MG PO SCH (10:10)
--- NOTE | 2017-04-28 14:41 | HP ---
DATE OF SERVICE: 04/27/17 HISTORY OF PRESENT ILLNESS: This is an 81-year-old white female who lives at [facility] who was brought in by the ambulance from the assisted after they had reported that she had had change in mental status, decrease consciousness and fever at the assisted. They stated she had been coughing for a few days. PAST MEDICAL HISTORY: Diabetes mellitus type 2 History of CHF History of CVA Alzheimer's dementia with behavioral disturbances making it difficult to communicate Obesity Generalized osteoarthritis GERD COPD Hypertension Depression/anxiety B12 deficiency History of skin cancer on her ear Anemia Hypertension PAST SURGICAL HISTORY: Hysterectomy Back surgery REVIEW OF SYSTEMS: CONSTITUTIONAL: Positive for fever, chills, malaise. No night sweats. HEENT: Eyes: No visual changes. No eye pain. No eye discharge or redness. ENT: Slight runny nose. No epistaxis. No sinus pain. No sore throat. No odynophagia. No ear pain. No congestion. RESPIRATORY: Positive for cough. No shortness of breath. No hemoptysis. CARDIOVASCULAR: No reports of chest pain. No angina symptoms. No CHF symptoms. No palpitations. No orthopnea. GASTROINTESTINAL: Positive for loss of appetite. No abdominal pain. No nausea or vomiting. No diarrhea or constipation. No hematemesis. No hematochezia. GENITOURINARY: No urgency. No frequency. No dysuria. No hematuria. No obstructive symptoms. No discharge. No pain. No significant abnormal bleeding. MUSCULOSKELETAL: Positive for generalized weakness, ambulates by way of a wheelchair. No joint swelling or redness. NEUROLOGICAL: The patient is confused, weak. No headache. No neck pain. No syncope. No seizures. No dizziness. PSYCHIATRIC: Not anxious. No depression. No suicidal thoughts. No homicidal thoughts. SKIN: Intact. No breakdown, no rashes. ENDOCRINE: No unexplained weight loss. No weight gain. HEMATOLOGIC/LYMPHATIC: No anemia. No purpura. No petechiae. No prolonged or excessive bleeding. No palpable lymph nodes. PERSONAL/FAMILY/SOCIAL HISTORY: The patient is a former smoker. There is no alcohol or ilicit drug use. She currently resides at the assisted. She is most all the time confused, difficult to communciate due to Alzheimer's dementia. MEDICATIONS: Aspirin 81 mg p.o. daily Tylenol 325 mg two tab p.o. q.4h p.r.n. Lopressor 25 mg p.o. b.i.d. Calcium 600 + Vitamin D 400 tablet) one each p.o. b.i.d. Razadyne ER 16 mg p.o. daily Furosemide 40 mg p.o. q.d.a.c. Citalopram 10 mg p.o. daily K-Dur 10 mEq p.o. daily Ferrous Sulfate 325 mg p.o. b.i.d. Lantus 48 unit Subcut bedtime Thera-Tabs one each p.o. daily Neurontin 100 mg p.o. t.i.d. Zaroxolyn 2.5 mg p.o. MoWeFr Crestor 20 mg p.o. bedtime Guaifenesin 100 mg/5 mL liquid 10 mL p.o. q.4h p.r.n. Nystatin one application TP q.8h p.r.n. Insulin Humalog 10 unit SQ t.i.d. Fenofibrate 54 mg p.o. bedtime Memantine 5 mg p.o. b.i.d. Protonix 40 mg p.o. daily ALLERGIES: CODEINE PHYSICAL EXAMINATION: VITAL SIGNS: Temperature 99, heart rate 75, respirations 20, BP 114/64, pulse ox 91%. APPEARANCE: The patient is well-appearing in no acute distress, well-nourished. HEENT: Head normocephalic, atraumatic. Eyes: Extraocular muscles are intact. Pupils are equal, round and reactive to light and accommodation. Ears: TMs within normal limits. No lesions. Nose - clear drainage. Throat: No exudate or erythema. NECK: Supple. No JVD, no carotid bruit. No lymphadenopathy or thyromegaly. LUNGS: Clear with diminished breath sounds bilaterally and equal.Percussion note normal. Chest symmetrical. HEART: Regular rate and rhythm with no murmurs, clicks or rubs. S1, S2, no S3. No murmurs. No cyanosis or clubbing. No ascites. Pulses: Dorsalis pedis and posterior tibial pulses +1 to +2 both sides. ABDOMEN: Soft. Nontender. Bowel sounds active times four quadrants. No hepatosplenomegaly. No CVA tenderness. No mass felt. EXTREMITIES: No edema. Full range of motion of all extremities, equal. NEUROLOGIC: Alert, however disoriented due to Alzheimer's dementia. No focal deficit. Cranial nerves II through XII are grossly intact. No headache, no double vision or headache. SKIN: [place], warm and dry with no breakdown. Intact. Turgor - normal. LYMPHATIC: No palpable lymph nodes/no lymphedema. MUSCULOSKELETAL: Negative Matthew's sign bilaterally. No joint swelling. No redness. No clubbing or cyanosis. LABS/RADIOLOGY: Urine is positive for +1 mucus, +1 bacteria, 2+ leuks, 2+ blood, 2+ protein. ABGs on room air: pH 7.498, pc02 34, p02 104, base excess of 3, bicarb 26.2, TC02 27, 02 sat 100. Sodium 142, potassium 4.1, BUN 27, creatinine 2.08, glucose 143. Total bili 0.65, AST 30, ALT 13, total protein 7.8, alkaline phosphatase 52. Lactic acid 11.8, BNP 287, white count 9.49, red blood cells 4.07, hemoglobin 12.9, hematocrit 38.5, platelets 211. Positive rapid flu for Influenza A. CT of the head shows stable CT compared with June 2016. No intracranial hemorrhage or large infarct, Chronic small vessel disease changes. CT of the thorax- patient shows coronary artery calcifications otherwise unremarkable. ASSESSMENT: 1. MILD DEHYDRATION 2. ACUTE INFLUENZA A 3. ACUTE VIRAL SYNDROME 4. CHANGE IN MENTAL STATUS 5. POOR ORAL INTAKE 6. CHRONIC KIDNEY DISEASE PLAN: 1. We will admit to the floor 2. Place on Tamiflu 75 mg p.o. b.i.d. 3. Start Rocephin 1 gm IV daily 4. IV fluids 75 cc/hr NS 5. Routine telemetry orders 6. CBC, CMP daily 7. Oxygen p.r.n. 8. Xopenex neb treatments q.6hr 9. Sliding scale for insulin 10. Continue home medications 11. Tylenol 650 mg q.4hr as needed for fever TIME SPENT: More than 70 minutes. MTDD
[2017-04-28] MEDS: ROCEPHIN 1 GM in SODIUM CHLORIDE 50 ML IV SCH (21:06)
[2017-04-28] MEDS: TRIGLIDE PO SCH (21:08)
[2017-04-28] MEDS: CRESTOR PO SCH (21:08)
[2017-04-28] MEDS: LANTUS SUBCUT SCH (21:12)
[2017-04-29] MEDS: PROTONIX PO SCH (05:47)
[2017-04-29] MEDS: SODIUM CHLORIDE 1,000 ML IV SCH (06:37)
[2017-04-29] MEDS: LOVENOX SUBCUT SCH (09:44)
[2017-04-29] MEDS: NAMENDA PO SCH ×2 (09:44→20:22)
[2017-04-29] MEDS: MULTIVITAMIN TABLET PO SCH (09:44)
[2017-04-29] MEDS: ASPIRIN CHEWABLE PO SCH (09:44)
[2017-04-29] MEDS: CALCIUM 500 + VIT D 200 MG TABLET PO SCH ×2 (09:45→20:22)
[2017-04-29] MEDS: NEURONTIN PO SCH ×3 (09:45→20:22)
[2017-04-29] MEDS: LOPRESSOR PO SCH ×2 (09:45→20:19)
[2017-04-29] MEDS: FERROUS SULFATE PO SCH ×2 (09:45→20:21)
[2017-04-29] MEDS: CELEXA PO SCH (09:45)
[2017-04-29] MEDS: TAMIFLU PO SCH ×2 (09:45→20:23)
[2017-04-29] MEDS: AZACTAM 1 GM in SODIUM CHLORIDE 50 ML IV SCH ×2 (10:00→22:02)
--- NOTE | 2017-04-29 13:53 | PCM.PROG ---
Attending Provider: ATTENDING PROVIDER: Dr. BERNA GIBBONS DATE OF SERVICE: 04/29/17 SUBJECTIVE: This 81 year old WHITE/ F was hospitalized 04/26/17. This is a demented lady hospitalized with flu type of symptoms. She has acute bronchitis with a croupy cough. Condition has been stabilized with being afebrile the last 24 hours. Appetite has improved some. No symptoms of CHF. REVIEW OF SYSTEMS: CONSTITUTIONAL: No night sweats. No fatigue, malaise, lethargy. No fever or chills. HEENT: Eyes: No visual changes. No eye pain. No eye discharge. ENT: No runny nose. No epistaxis. No sinus pain. No odynophagia. No congestion. RESPIRATORY: Croupy cough and congestion. No hemoptysis. No shortness of breath. CARDIOVASCULAR: No angina symptoms. No CHF symptoms. No atypical chest pain for CAD. No palpitations. No orthopnea.. GASTROINTESTINAL: No abdominal pain. No nausea or vomiting. No diarrhea or constipation. No hematemesis. No hematochezia. GENITOURINARY: No urgency. No frequency. No dysuria. No hematuria. No obstructive symptoms. No discharge. No pain. No significant abnormal bleeding. MUSCULOSKELETAL: No musculoskeletal pain; no joint swelling. NEUROLOGICAL: Awake, alert, oriented to time, place and person. No headache. No neck pain. No syncope. No seizures. No dizziness. PSYCHIATRIC: Alert but confused. Not anxious. No depression. No suicidal thoughts. No homicidal thoughts. SKIN: No rash. No lesions. No wounds. ENDOCRINE: No unexplained weight loss. No weight gain. HEMATOLOGIC/LYMPHATIC: No anemia. No purpura. No petechiae. No prolonged or excessive bleeding. No palpable lymph nodes. PHYSICAL EXAMINATION: GENERAL: The patient is alert but confused lying in bed in no distress. VITAL SIGNS: Temperature 98.8 F, Pulse 78, Respiratory Rate 18, BP 110/67, Pulse Ox 94% HEENT: Head normocephalic, atraumatic. Eyes: Extraocular muscles are intact. Pupils are equal, round and reactive to light and accommodation. Ears: No lesions. Nose appeared normal. Throat: No exudate or erythema. NECK: Supple. No JVD, no carotid bruit. No lymphadenopathy or thyromegaly. LUNGS: Diminished breath sounds with bilateral wheeze. Percussion note normal. Chest symmetrical. HEART: S1, S2, no S3. No murmurs. No cyanosis or clubbing. No ascites. Pulses: Dorsalis pedis and posterior tibial pulses +1 to +2 both sides. ABDOMEN: Soft. Non-tender. Bowel sounds active. No CVA tenderness. No mass felt. EXTREMITIES: No edema. Full range of motion of all extremities, equal. NEUROLOGIC: No focal deficit. Cranial nerves II through XII are grossly intact. No headache, no double vision or headache. SKIN: Not dry. Intact. Turgor-normal. LYMPHATIC: No palpable lymph nodes/no lymphedema. MUSCULOSKELETAL: Normal joints with no swelling. Muscle tone is normal. LAB REVIEW: 04/29/17 04:40 04/29/17 04:40 04/29/17 04:40: Sodium 140, Potassium 3.6, Chloride 110 H, Carbon Dioxide 21 L, Anion Gap 12.6, BUN 27 H, Creatinine 1.62 H, Estimated GFR (MDRD) 30.00, BUN/ Creatinine Ratio 16.66, Glucose 122 H, Calcium 9.0, Total Bilirubin 0.3, AST 33 , ALT 15, Alkaline Phosphatase 43 L, Total Protein 6.3, Albumin 2.8 L, Globulin 3.5, Albumin/Globulin Ratio 0.80 04/29/17 04:40: WBC 6.24, RBC 3.38 L, Hgb 10.6 L, Hct 32.3 L, MCV 95.6, MCH 31.4 H, MCHC 32.8, RDW Coeff of Harpal 14.1, Plt Count 166, Immature Gran % (Auto) 0.5, Neut % (Auto) 59.2, Lymph % (Auto) 28.5, Armstrong % (Auto) 8.5, Eos % (Auto) 3.0, Baso % (Auto) 0.3, Immature Gran # (Auto) 0.0, Neut # 3.7, Lymph # 1.8, Armstrong # 0.5, Eos # 0.2, Baso # 0.0 ASSESSMENT: 1. Fever, lethargy and confusion which has worsened from the flu syndrome. 2. Acute bronchitis. 3. UTI, E. coli positive 4. Influenza A positive PLAN: 1. Temperature at 10 pm last night, will add Azactam 1 gm q.12hr 2. Continue antibiotics 3. Dehydration resolved 4. The patient is also being treated for UTI. 5. Blood sugar under control 6. Kidney functions stable 7. Hydration status is acceptable Plan and coordination of the patient's care discussed in the presence of Master Ship and nurse. CONDITION: Stable SCRIBED BY: PALOMA LEONG Early Childhood Special Educator scribed while in presence of service performed by Dr. BERNA GIBBONS on 04/29/17 ([id number])
--- NOTE | 2017-04-29 13:56 | PCM.PROG ---
Attending Provider: ATTENDING PROVIDER: Dr. BERNA GIBBONS This patient is seen with Ani Sanchez, Nurse Practitioner. DATE OF SERVICE: 04/28/17 SUBJECTIVE: This 81 year old WHITE/ F was hospitalized 04/26/17. The patient is resting comfortably in bed. She had low grade temperature yesterday. She is eating 50 to 75% of her meals. She is unable to communicate due to severe Alzheimer's dementia. REVIEW OF SYSTEMS: CONSTITUTIONAL: Positive for fever, malaise, weakness and confusion. No night sweats. HEENT: Eyes: No visual changes. No eye pain. No eye discharge. ENT: No runny nose. No epistaxis. No sinus pain. No odynophagia. No congestion. RESPIRATORY: Positive for cough and congestion. No hemoptysis. No shortness of breath. CARDIOVASCULAR: No angina symptoms. No CHF symptoms. No atypical chest pain for CAD. No palpitations. No orthopnea.. GASTROINTESTINAL: No abdominal pain. No nausea or vomiting. No diarrhea or constipation. No hematemesis. No hematochezia. GENITOURINARY: No urgency. No frequency. No dysuria. No hematuria. No obstructive symptoms. No discharge. No pain. No significant abnormal bleeding. MUSCULOSKELETAL: No musculoskeletal pain; no joint swelling. NEUROLOGICAL: Confused. No headache. No neck pain. No syncope. No seizures. No dizziness. PSYCHIATRIC: Not anxious. No depression. No suicidal thoughts. No homicidal thoughts. SKIN: No rash. No lesions. No wounds. ENDOCRINE: No unexplained weight loss. No weight gain. HEMATOLOGIC/LYMPHATIC: No anemia. No purpura. No petechiae. No prolonged or excessive bleeding. No palpable lymph nodes. PHYSICAL EXAMINATION: GENERAL: The patient is resting comfortably lying in bed in no distress. VITAL SIGNS: Temperature 98.0 F, Pulse 76, Respiratory Rate 20, BP 118/58, Pulse Ox 94% HEENT: Head normocephalic, atraumatic. Eyes: Extraocular muscles are intact. Pupils are equal, round and reactive to light and accommodation. Ears: No lesions. Nose appeared normal. Throat: No exudate or erythema. NECK: Supple. No JVD, no carotid bruit. No lymphadenopathy or thyromegaly. LUNGS: Diminished breath sounds bilaterally. Clear to auscultation. Percussion note normal. Chest symmetrical. HEART: S1, S2, no S3. No murmurs. No cyanosis or clubbing. No ascites. Pulses: Dorsalis pedis and posterior tibial pulses +1 to +2 both sides. ABDOMEN: Soft. Non-tender. Bowel sounds active. No CVA tenderness. No mass felt. EXTREMITIES: No edema. Full range of motion of all extremities, equal. NEUROLOGIC: No focal deficit. Cranial nerves II through XII are grossly intact. No headache, no double vision or headache. SKIN: Not dry. Intact. Turgor-normal. LYMPHATIC: No palpable lymph nodes/no lymphedema. MUSCULOSKELETAL: Normal joints with no swelling. Muscle tone is normal. LAB REVIEW: 04/28/17 04:30 04/28/17 04:30 04/28/17 04:30: Sodium 142, Potassium 3.9, Chloride 111 H, Carbon Dioxide 21 L, Anion Gap 13.9, BUN 29 H, Creatinine 1.79 H, Estimated GFR (MDRD) 27.00, BUN/ Creatinine Ratio 16.20, Glucose 164 H, Calcium 9.3, Total Bilirubin 0.3, AST 28 , ALT 14, Alkaline Phosphatase 46 L, Total Protein 7.1, Albumin 2.9 L, Globulin 4.2, Albumin/Globulin Ratio 0.69 04/28/17 04:30: WBC 5.14, RBC 3.76 L, Hgb 11.9 L, Hct 36.1 L, MCV 96.0, MCH 31.6 H, MCHC 33.0, RDW Coeff of Harpal 14.4, Plt Count 181, Immature Gran % (Auto) 0.4, Neut % (Auto) 58.5, Lymph % (Auto) 26.5, Harper % (Auto) 12.6 H, Eos % (Auto ) 1.6, Baso % (Auto) 0.4, Immature Gran # (Auto) 0.0, Neut # 3.0, Lymph # 1.4, Harper # 0.7, Eos # 0.1, Baso # 0.0 ASSESSMENT: 1. Influenza A 2. UTI 3. Mild dehydration 4. Chronic kidney disease 5. Dementia 6. Unable to communicate 7. History of CVA PLAN: 1. Decrease IV fluids to 50 cc/hr 2. Urine culture pending Plan and coordination of the patient's care discussed in the presence of Instructor Bridge and nurse. CONDITION: Stable SCRIBED BY: PALOMA LEONG Rubber Molder scribed while in presence of service performed by Dr. Gibbons/Ani Sanchez APRN on 04/28/17 ([id number])
[2017-04-29] MEDS: HUMULIN R SUBCUT PRN ×2 (14:57→20:18)
[2017-04-29] MEDS: GALANTAMINE HBR 16 MG PO SCH (14:58)
[2017-04-29] MEDS: ROCEPHIN 1 GM in SODIUM CHLORIDE 50 ML IV SCH (20:18)
[2017-04-29] MEDS: CRESTOR PO SCH (20:23)
[2017-04-29] MEDS: TRIGLIDE PO SCH (20:23)
[2017-04-29] MEDS: LANTUS SUBCUT SCH (20:27)
[2017-04-30] MEDS: SODIUM CHLORIDE 1,000 ML IV SCH (03:36)
[2017-04-30] MEDS: PROTONIX PO SCH (06:09)
[2017-04-30] MEDS: HUMULIN R SUBCUT PRN ×4 (06:09→21:46)
--- NOTE | 2017-04-30 08:56 | PCM.PROG ---
Attending Provider: ATTENDING PROVIDER: Dr. BERNA GIBBONS This patient is seen with Ani Sanchez, Nurse Practitioner. DATE OF SERVICE: 04/30/17 SUBJECTIVE: This 81 year old WHITE/ F was hospitalized 04/26/17. Alert lying in bed and smiling, confused due to dementia. Has not had fever times 24 hours. REVIEW OF SYSTEMS: CONSTITUTIONAL: No night sweats. No fatigue, malaise, lethargy. No fever or chills. HEENT: Eyes: No visual changes. No eye pain. No eye discharge. ENT: No runny nose. No epistaxis. No sinus pain. No odynophagia. No congestion. RESPIRATORY: cough, no congestion. No hemoptysis. No shortness of breath. CARDIOVASCULAR: No angina symptoms. No CHF symptoms. No atypical chest pain for CAD. No palpitations. No orthopnea.. GASTROINTESTINAL: No abdominal pain. No nausea or vomiting. No diarrhea or constipation. No hematemesis. No hematochezia. GENITOURINARY: No urgency. No frequency. No dysuria. No hematuria. No obstructive symptoms. No discharge. No pain. No significant abnormal bleeding. MUSCULOSKELETAL: No musculoskeletal pain; no joint swelling. NEUROLOGICAL: Awake, alert, Confused. No headache. No neck pain. No syncope. No seizures. No dizziness. PSYCHIATRIC: Not anxious. No depression. No suicidal thoughts. No homicidal thoughts. SKIN: No rash. No lesions. No wounds. ENDOCRINE: No unexplained weight loss. No weight gain. HEMATOLOGIC/LYMPHATIC: No anemia. No purpura. No petechiae. No prolonged or excessive bleeding. No palpable lymph nodes. PHYSICAL EXAMINATION: GENERAL: The patient is awake, alert lying in bed in no distress. VITAL SIGNS: Temperature 98.4 F, Pulse 89, Respiratory Rate 18, BP 113/72, Pulse Ox 96% HEENT: Head normocephalic, atraumatic. Eyes: Extraocular muscles are intact. Pupils are equal, round and reactive to light and accommodation. Ears: No lesions. Nose appeared normal. Throat: No exudate or erythema. NECK: Supple. No JVD, no carotid bruit. No lymphadenopathy or thyromegaly. LUNGS: Bilateral Rhonchi Clear to auscultation. Percussion note normal. Chest symmetrical. HEART: S1, S2, no S3. No murmurs. No cyanosis or clubbing. No ascites. Pulses: Dorsalis pedis and posterior tibial pulses +1 to +2 both sides. ABDOMEN: Soft. Non-tender. Bowel sounds active. No CVA tenderness. No mass felt. EXTREMITIES: No edema. Full range of motion of all extremities, equal. NEUROLOGIC: No focal deficit. Cranial nerves II through XII are grossly intact. No headache, no double vision or headache. Confused. SKIN: Not dry. Intact. Turgor-normal. LYMPHATIC: No palpable lymph nodes/no lymphedema. MUSCULOSKELETAL: Normal joints with no swelling. Muscle tone is normal. LAB REVIEW: 04/30/17 04:05 04/30/17 04:05 04/30/17 04:05: Sodium 137, Potassium 3.7, Chloride 109 H, Carbon Dioxide 22 L, Anion Gap 9.7, BUN 23 H, Creatinine 1.50 H, Estimated GFR (MDRD) 33.00, BUN/ Creatinine Ratio 15.33, Glucose 169 H, Calcium 8.7, Total Bilirubin < 0.3, AST 35, ALT 17, Alkaline Phosphatase 44 L, Total Protein 6.0, Albumin 2.6 L, Globulin 3.4, Albumin/Globulin Ratio 0.76 04/30/17 04:05: WBC 6.81, RBC 3.20 L, Hgb 10.1 L, Hct 30.2 L, MCV 94.4, MCH 31.6 H, MCHC 33.4, RDW Coeff of Harpal 13.6, Plt Count 149, Immature Gran % (Auto) 0.4, Neut % (Auto) 63.9, Lymph % (Auto) 26.4, [place] % (Auto) 6.6, Eos % (Auto) 2.6, Baso % (Auto) 0.1, Immature Gran # (Auto) 0.0, Neut # 4.3, Lymph # 1.8, [place] # 0.5, Eos # 0.2, Baso # 0.0 ASSESSMENT: Please see below. Influenza A UTI Cough Dementia with behavioral disturbances Chronic kidney disease PLAN: 1cc Decadron IM Chest X-ray Xopenex NEBS treatment Q 8 hours Plan and coordination of the patient's care discussed in the presence of Manager Basketball and nurse. SCRIBED BY: Ronen RENE scribed while in presence of service performed by Dr. Gibbons/Ani Sanchez APRN on 04/30/17 ([id number])
[2017-04-30] MEDS ORDERED: DECADRON 4 MG/ML SDV IM STA (09:06)
[2017-04-30] MEDS: AZACTAM 1 GM in SODIUM CHLORIDE 50 ML IV SCH ×2 (09:57→21:41)
[2017-04-30] MEDS: MULTIVITAMIN TABLET PO SCH (09:57)
[2017-04-30] MEDS: ASPIRIN CHEWABLE PO SCH (09:57)
[2017-04-30] MEDS: FERROUS SULFATE PO SCH ×2 (09:57→21:48)
[2017-04-30] MEDS: LOPRESSOR PO SCH ×2 (09:57→21:48)
[2017-04-30] MEDS: CELEXA PO SCH (09:57)
[2017-04-30] MEDS: LOVENOX SUBCUT SCH (09:58)
[2017-04-30] MEDS: TAMIFLU PO SCH ×2 (09:58→21:49)
[2017-04-30] MEDS: NEURONTIN PO SCH ×3 (09:58→21:48)
[2017-04-30] MEDS: CALCIUM 500 + VIT D 200 MG TABLET PO SCH ×2 (09:58→21:48)
[2017-04-30] MEDS: NAMENDA PO SCH ×2 (09:59→21:49)
[2017-04-30] MEDS: GALANTAMINE HBR 16 MG PO SCH (12:36)
--- NOTE | 2017-04-30 13:19 | DI ---
EXAM: Chest one view, frontal view only. HISTORY: Cough. COMPARISON: 04/26/2017. FINDINGS: Left-sided pacemaker again noted. Heart is mildly enlarged. There is vascular congestion with perihilar consolidation bilaterally. No large pleural effusion or pneumothorax identified. Os seous structures are intact. IMPRESSION: Suspect mild pulmonary edema. Correlate for signs of pneumonia.
[2017-04-30] MEDS: XOPENEX 1.25 MG NEB SCH ×2 (14:17→21:56)
[2017-04-30] MEDS ORDERED: LASIX IVP STA (14:17)
[2017-04-30] MEDS ORDERED: K-DUR PO SCH (16:30)
[2017-04-30] MEDS: MICRO-K CAP PO SCH (17:52)
[2017-04-30] MEDS: LANTUS SUBCUT SCH (21:45)
[2017-04-30] MEDS: TRIGLIDE PO SCH (21:48)
[2017-04-30] MEDS: CRESTOR PO SCH (21:48)
[2017-04-30] MEDS: ROCEPHIN 1 GM in SODIUM CHLORIDE 50 ML IV SCH (23:57)
[2017-05-01] MEDS: XOPENEX 1.25 MG NEB SCH (05:00)
[2017-05-01] MEDS: HUMULIN R SUBCUT PRN ×2 (06:30→11:58)
[2017-05-01] MEDS: PROTONIX PO SCH (06:30)
[2017-05-01] MEDS ORDERED: LASIX TAB PO SCH (06:30)
[2017-05-01] MEDS ORDERED: DECADRON 4 MG/ML SDV IVP STA (09:07)
[2017-05-01] MEDS: LOVENOX SUBCUT SCH (09:22)
[2017-05-01] MEDS: ASPIRIN CHEWABLE PO SCH (09:23)
[2017-05-01] MEDS: NAMENDA PO SCH (09:23)
[2017-05-01] MEDS: CELEXA PO SCH (09:23)
[2017-05-01] MEDS: FERROUS SULFATE PO SCH (09:23)
[2017-05-01] MEDS: AZACTAM 1 GM in SODIUM CHLORIDE 50 ML IV SCH (09:24)
[2017-05-01] MEDS: MULTIVITAMIN TABLET PO SCH (09:24)
[2017-05-01] MEDS: CALCIUM 500 + VIT D 200 MG TABLET PO SCH (09:24)
[2017-05-01] MEDS: NEURONTIN PO SCH (09:24)
[2017-05-01] MEDS: TAMIFLU PO SCH (09:24)
[2017-05-01] MEDS: LOPRESSOR PO SCH (09:24)
[2017-05-01] MEDS: GALANTAMINE HBR 16 MG PO SCH (09:25)
[2017-05-01] MEDS: MICRO-K CAP PO SCH (09:34)
[2017-05-01 11:34] VITALS: BP 106/56; TEMP 97.6
--- NOTE | 2017-05-01 11:56 | PCM.PROG ---
Attending Provider: ATTENDING PROVIDER: Dr. BERNA GIBBONS This patient is seen with Ani Sanchez, Nurse Practitioner. DATE OF SERVICE: 05/01/17 SUBJECTIVE: This 81 year old WHITE/ F was hospitalized 04/26/17. The patient is resting comfortably. Has been eating and drinking well. No fever times 24 hours last dose of Tamiflu today. The patient has remarkably improved since admission. REVIEW OF SYSTEMS: CONSTITUTIONAL: No night sweats. No fatigue, malaise, lethargy. No fever or chills. Weakness HEENT: Eyes: No visual changes. No eye pain. No eye discharge. ENT: No runny nose. No epistaxis. No sinus pain. No odynophagia. No congestion. RESPIRATORY: Cough, improved. , no congestion. No hemoptysis. No shortness of breath. CARDIOVASCULAR: No angina symptoms. No CHF symptoms. No atypical chest pain for CAD. No palpitations. No orthopnea.. GASTROINTESTINAL: No abdominal pain. No nausea or vomiting. No diarrhea or constipation. No hematemesis. No hematochezia. GENITOURINARY: No urgency. No frequency. No dysuria. No hematuria. No obstructive symptoms. No discharge. No pain. No significant abnormal bleeding. MUSCULOSKELETAL: No musculoskeletal pain; no joint swelling. NEUROLOGICAL: Awake, alert, confusion. No headache. No neck pain. No syncope. No seizures. No dizziness. PSYCHIATRIC: Not anxious. No depression. No suicidal thoughts. No homicidal thoughts. SKIN: No rash. No lesions. No wounds. ENDOCRINE: No unexplained weight loss. No weight gain. HEMATOLOGIC/LYMPHATIC: No anemia. No purpura. No petechiae. No prolonged or excessive bleeding. No palpable lymph nodes. PHYSICAL EXAMINATION: GENERAL: The patient is awake, alert and oriented to person only, lying in bed in no distress. VITAL SIGNS: Temperature 97.7 F, Pulse 64, Respiratory Rate 20, BP 149/65, Pulse Ox 97% HEENT: Head normocephalic, atraumatic. Eyes: Extraocular muscles are intact. Pupils are equal, round and reactive to light and accommodation. Ears: No lesions. Nose appeared normal. Throat: No exudate or erythema. NECK: Supple. No JVD, no carotid bruit. No lymphadenopathy or thyromegaly. LUNGS: Diminished breath sounds. Clear to auscultation. Percussion note normal. Chest symmetrical. HEART: S1, S2, no S3. No murmurs. No cyanosis or clubbing. No ascites. Pulses: Dorsalis pedis and posterior tibial pulses +1 to +2 both sides. ABDOMEN: Soft. Non-tender. Bowel sounds active. No CVA tenderness. No mass felt. EXTREMITIES: No edema. Full range of motion of all extremities, equal. NEUROLOGIC: No focal deficit. Cranial nerves II through XII are grossly intact. No headache, no double vision or headache. SKIN: Not dry. Intact. Turgor-normal. LYMPHATIC: No palpable lymph nodes/no lymphedema. MUSCULOSKELETAL: Normal joints with no swelling. Muscle tone is normal. LAB REVIEW: 05/01/17 05:35 05/01/17 05:35 05/01/17 05:35: Sodium 140, Potassium 3.6, Chloride 107, Carbon Dioxide 21 L, Anion Gap 15.6, BUN 23 H, Creatinine 1.55 H, Estimated GFR (MDRD) 32.00, BUN/ Creatinine Ratio 14.83, Glucose 262 H, Calcium 9.4, Total Bilirubin 0.3, AST 31 , ALT 24, Alkaline Phosphatase 47 L, Total Protein 6.7, Albumin 2.8 L, Globulin 3.9, Albumin/Globulin Ratio 0.72 05/01/17 05:35: WBC 6.31, RBC 3.33 L, Hgb 10.5 L, Hct 31.1 L, MCV 93.4, MCH 31.5 H, MCHC 33.8, RDW Coeff of Harpal 13.7, Plt Count 153, Immature Gran % (Auto) 0.6, Neut % (Auto) 67.2, Lymph % (Auto) 25.7, Sampson % (Auto) 6.0, Eos % (Auto) 0.3, Baso % (Auto) 0.2, Immature Gran # (Auto) 0.0, Neut # 4.2, Lymph # 1.6, Sampson # 0.4, Eos # 0.0, Baso # 0.0 ASSESSMENT: Please see below. Influenza A resolved UTI, positive, E-Coli Dementia Chronic kidney disease PLAN: Discharge to [place] Last Tamiflu this morning Keflex 500mg three times a day for three day Prednisone 10mg daily for 5 days. Plan and coordination of the patient's care discussed in the presence of Network Contract Manager and nurse. SCRIBED BY: RILEY MARTINEZ Slot Machine Floor Person scribed while in presence of service performed by Dr. Gibbons/Ani Sanchez APRN on 05/01/17 ([id number])
--- NOTE | 2017-05-01 13:38 | CM.DICTOOL ---
ADMISSION: 04/26/17 21:19 DISCHARGE: May 01, 2017 DATE OF SERVICE: 05/01/17 FINAL DIAGNOSIS Influenza A UTI, E-Coli Organism Dementia Diabetes Mellitus, type 2 Chronic Kidney Disease Neuropathy Osteoarthritis Dyslipidemia Anemia LVH with LVEF 50% (12/2013) Severe Tricuspid and Moderate Mitral Regurgitation, (12/2013) Colorectal Cancer with Resection Cholecystectomy Hysterectomy Lumbar Surgery Pacemaker LAST VITALS Temp Pulse Resp BP Pulse Ox 97.6 F 67 18 106/56 L 98 05/01/17 10:00 05/01/17 10:00 05/01/17 10:00 05/01/17 10:00 05/01/17 10:00 ACTIVE HOME MEDICATIONS Acetaminophen (Tylenol) 650 mg PO Q4H PRN PRN Reason: Mild Pain Last Admin: 04/27/17 03:12 Dose: 650 mg Aspirin (Aspirin Chewable) 81 mg PO DAILYWM [facility] Last Admin: 05/01/17 09:23 Dose: 81 mg Calcium/Vitamin D (Calcium 500 + Vit D 200 Mg Tablet) 1 each PO BID [facility] Last Admin: 05/01/17 09:24 Dose: 1 each Citalopram Hydrobromide (Celexa) 10 mg PO DAILY [facility] Last Admin: 05/01/17 09:23 Dose: 10 mg Fenofibrate (Triglide) 54 mg PO BEDTIME [facility] Last Admin: 04/30/17 21:48 Dose: 54 mg Ferrous Sulfate (Ferrous Sulfate) 324 mg PO BID [facility] Last Admin: 05/01/17 09:23 Dose: 324 mg Furosemide (Lasix Tab) 40 mg PO QDAC [facility] Last Admin: 05/01/17 06:30 Dose: 40 mg Gabapentin (Neurontin) 100 mg PO TID [facility] Last Admin: 05/01/17 09:24 Dose: 100 mg Guaifenesin (Robitussin Sugar-Free) 10 ml PO Q4HR PRN PRN Reason: Cough Insulin Glargine (Lantus) 48 unit SUBCUT BEDTIME [facility] Last Admin: 04/30/17 21:45 Dose: 48 unit Lispro Insulin (Humalog) 10 units SQ TID Last Admin: Levalbuterol HCl (Xopenex 1.25 Mg) 1 vial NEB RTTID [facility] Last Admin: 05/01/17 05:00 Dose: 1 vial Memantine (Namenda) 5 mg PO BID [facility] Last Admin: 05/01/17 09:23 Dose: 5 mg Metoprolol Tartrate (Lopressor) 25 mg PO BID [facility] Last Admin: 05/01/17 09:24 Dose: 25 mg Multivitamins (Multivitamin Tablet) 1 tab PO DAILY [facility] Last Admin: 05/01/17 09:24 Dose: 1 tab Non-Formulary Medication (Galantamine Hbr [Razadyne Er]) 16 mg PO DAILY [facility] Last Admin: 05/01/17 09:25 Dose: Not Given Pantoprazole Sodium (Protonix) 40 mg PO QDAC [facility] Last Admin: 05/01/17 06:30 Dose: 40 mg Potassium Chloride (Micro-K Cap) 10 meq PO DAILYWM [facility] Last Admin: 05/01/17 09:34 Dose: 10 meq Rosuvastatin Calcium (Crestor) 20 mg PO BEDTIME [facility] Last Admin: 04/30/17 21:48 Dose: 20 mg Metolazone (Zaroxolyn) 2.5 mg MOWEFR PRN for leg swelling Last Admin: Nystatin (NYstop Powder) 1 application to fara redness Q 8H PRN Last Admin: ALLERGIES codeine Adverse Reaction (Verified 04/26/17 19:42) NEW PRESCRIPTIONS: Keflex 500 mg TID for 7 days Prednisone 10 mg daily for 5 days SMOKING: Not Applicable DISEASE SPECIFIC EDUCATION: Not Applicable; patient disoriented LAB REVIEW: 05/01/17 05:35 05/01/17 05:35 05/01/17 05:35: Sodium 140, Potassium 3.6, Chloride 107, Carbon Dioxide 21 L, Anion Gap 15.6, BUN 23 H, Creatinine 1.55 H, Estimated GFR (MDRD) 32.00, BUN/ Creatinine Ratio 14.83, Glucose 262 H, Calcium 9.4, Total Bilirubin 0.3, AST 31 , ALT 24, Alkaline Phosphatase 47 L, Total Protein 6.7, Albumin 2.8 L, Globulin 3.9, Albumin/Globulin Ratio 0.72 05/01/17 05:35: WBC 6.31, RBC 3.33 L, Hgb 10.5 L, Hct 31.1 L, MCV 93.4, MCH 31.5 H, MCHC 33.8, RDW Coeff of Harpal 13.7, Plt Count 153, Immature Gran % (Auto) 0.6, Neut % (Auto) 67.2, Lymph % (Auto) 25.7, [place] % (Auto) 6.0, Eos % (Auto) 0.3, Baso % (Auto) 0.2, Immature Gran # (Auto) 0.0, Neut # 4.2, Lymph # 1.6, [place] # 0.4, Eos # 0.0, Baso # 0.0 PLAN: Discharge to [facility] Diet: Consistent Carbohydrates Activity: Up to chair at least 2 times daily Turn every 2 hours Incontinent care prn Decubitus precautions Accu-checks TID CBC, CMP in one week, then monthly HBA1C, TSH, Free T4, Lipids every 6 months The patient is a DNR The patient has completed a 5 day course of Tamiflu with the last dose administered this morning. She has been on Droplet Precautions during her hospitalization Decadron 1 ml was administered IM on 04/30 and 05/01 Ms. Pryor is alert to person. She is disoriented to time, place and situation. Her speech is rambling with much laughter. She replies to most questions with one word only. Her color is pale, labs stable. She requires total care by the nursing staff due to dementia and urinary/bowel incontinence. She requires assistance of 2-3 staff members for transfer. No skin breakdown is noted, but redness is noted to the fara-area due to incontinence. Last BM noted this morning. The daughter, Bessie Pillai was notified of discharge for today. She is in agreement. Jovanny Johnson MD Ani Sanchez APRN
--- NOTE | 2017-05-05 09:23 | PN ---
DATE OF SERVICE: 05/01/17 SUBJECTIVE: The patient was hospitalized with Influenza A with bronchitis. The patient had dehydration and dementia was worse on admission but her mental status has improved. She is looking much better and eating much better. PHYSICAL EXAMINATION: HEENT: Head normocephalic, atraumatic. Eyes: Extraocular muscles are intact. Pupils are equal, round and reactive to light and accommodation. Ears: No lesions. Nose appeared normal. Throat: No exudate or erythema. NECK: Supple. No JVD, no carotid bruit. No lymphadenopathy or thyromegaly. LUNGS: Decreased breath sounds but clear to auscultation. Percussion note normal. Chest symmetrical. HEART: S1, S2, no S3. No murmurs. No cyanosis or clubbing. No ascites. Pulses: Dorsalis pedis and posterior tibial pulses +1 to +2 both sides. ABDOMEN: Soft. Nontender. Bowel sounds active. No CVA tenderness. No mass felt. EXTREMITIES: No edema. Full range of motion of all extremities, equal. NEUROLOGIC: No focal deficit. Cranial nerves II through XII are grossly intact. No headache, no double vision or headache. SKIN: Not dry. Intact. Turgor - normal. LYMPHATIC: No palpable lymph nodes/no lymphedema. MUSCULOSKELETAL: Normal joints with no swelling. Muscle tone is normal. PLAN: 1. The patient will be sent to the [facility]. The patient was seen and examined with Nurse Practitioner. TIME SPENT: More than 30 minutes. Plan and coordination of the patient's care discussed in the presence of nurse. ADORE
--- NOTE | 2017-05-05 12:37 | PN ---
DATE OF SERVICE: 04/30/17 SUBJECTIVE: 81 year old white female hospitalized with fever, influenza A positive, lethargic, cough and congestion and injection with e-coli. The patient is being treated with Rocephin. Her condition has improved. This chest x-ray showed mild CHF that was the possibility, no symptoms. Will give Lasix IV. The patient's condition overall improving. The patient has dementia. The patient was seen and examined with Nurse Practitioner. CONDITION: STABLE TIME SPENT: More than 30 minutes. Plan and coordination of the patient's care discussed in the presence of nurse. ADORE
--- NOTE | 2017-05-14 14:53 | DS ---
DATE OF SERVICE: 05/01/17 FINAL DIAGNOSIS: 1. INFLUENZA A 2. UTI, E-COLI ORGANISM 3. DEMENTIA 4. DIABETES MELLITUS, TYPE 2 5. CHRONIC KIDNEY DISEASE 6. NEUROPATHY 7. OSTEOARTHRITIS 8. DYSLIPIDEMIA 9. ANEMIA 10. LVH WITH LVEF 50% (12/2013) 11. 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 COLORECTAL CANCER WITH RESECTION 13. CHOLECYSTECTOMY 14. HYSTERECTOMY 15. LUMBAR SURGERY 16. PACEMAKER DISCHARGE INSTRUCTIONS: 1. The patient will be seen in followup on custodial rounds. 2. Accu-Checks t.i.d., CBC, CMP in one week then monthly. HB A1C, TSH, Free T4, lipids every 6 months. 3. The patient is DNR 4. Turn every 2 hours; incontinent care p.r.n. 5. Decubitus precautions MEDICATIONS AT DISCHARGE: Tylenol 650 mg p.o.q .4h p.r.n. Aspirin 81 mg p.o. daily with meal AYAZ Calcium/Vitamin D one each p.o. b.i.d. AYAZ Citalopram (Celexa) 10 mg p.o. daily AYAZ Triglide 54 mg p.o. bedtime AYAZ Ferrous Sulfate 324 mg p.o. b.i.d. AYAZ Lasix 40 mg p.o. q.d a.c. AYAZ Neurontin 100 mg p.o. t.i.d. AYAZ Robitussin Sugar-Free 10 mL p.o. q.4h p.r.n. Lantus 48 unit subcut bedtime AYAZ Humalog 10 units SQ t.i.d. Xopenex 1.25 mg one vial neb RT t.i.d. AYAZ Namenda 5 mg p.o. b.i.d. AYAZ Lopressor 25 mg p.o. b.i.d. AYAZ Multivitamin one tab p.o. daily AYAZ Galantamine Hbr 16 mg p.o. daily AYAZ Protonix 40 mg p.o. q.d a.c. Micro-K 10 mEq p.o. daily with meal AYAZ Crestor 20 mg p.o. bedtime AYAZ Zaroxolyn 2.5 mg MoWeFr p.r.n. for leg swelling Nystatin one application to fara redness q.8h p.r.n. NEW PRESCRIPTIONS: Keflex 500 mg t.i.d. for 7 days Prednisone 10 mg daily for 5 days DIET INSTRUCTIONS: Consistent Carbohydrates ACTIVITY: Up to chair at least 2 times daily; turn every 2 hours; incontinent care p.r.n. ; decubitus precautions. Accu-Checks t.i.d., CBC, CMP in one week then monthly. HB A1C, TSH, Free T4, lipids every 6 months. The patient is DNR. SMOKING: N/A DISEASE SPECIFIC EDUCATION: N/A; patient disoriented HOSPITAL COURSE: This is an 81-year-old white female who was brought in by ambulance to the emergency room. She is a resident of [facility]. They had stated that she had been running a low grade fever, had decreased responsiveness and decreased appetite for the past day or so. Rapid flu revealed that she was positive for Influenza A. Her urinalysis was abnormal and urine culture grew E. coli. She was admitted and placed on Tamiflu 75 mg p.o. b.i.d. along with IV fluids for mild dehydration at 75 cc an hour, D5 1/2 NS, placed on Rocephin 1 gm IV daily. For the first 2 to 3 days she ran fever of up to 102. She has been afebrile for the past 48 hours. For the first few days of her admission she slept most of the time, was difficult to arouse. For the past two days however she has been eating well, alert, waking up babbling and talking. She is difficult to communicate due to severe Alzheimer's dementia. She is oriented to person however not place or time. She does have chronic kidney disease. Her kidney function improved slightly with IV fluids which were then discontinued. Yesterday she did have some increased chest congestion. A repeat chest x-ray was done which showed some small pleural effusions. She was given Lasix 20 mg IV as well as Decadron 4 mg IM. Her congestion has resolved today. She has no leg edema. She is breathing 95 to 99% on room air but then she has been eating well for the past two days and drinking plenty of fluids. We will discharge her back to the custodial on her regular home medications. These haven't been changed. She has finished a five day course of Tamiflu here at the hospital which she will not take any more of. We will continue Keflex for the next 7 days to continue to treat her UTI along with Prednisone 10 mg daily for the next five days due to cough. Again, she is discharged home in stable condition. White count 6.3, hemoglobin 10.5, hematocrit 31/1, BUN 23, creatinine 1.55 which is normal for her. Temperature 97.7, BP 149/65, heart rate 64, oxygen 97% on room air. She is discharged back in stable condition. We will followup with her in the custodial. TIME SPENT: More than 60 minutes. ADORE
--- NOTE | 2017-05-15 13:44 | PN ---
DATE OF SERVICE: 04/28/17 SUBJECTIVE: 81 year old demented lady has had fever of 100.3. Mild cough and congestion, flu type of symptoms seems to be resolving. She is on Rocephin and steroids. The patient also had urinary tract infection. The patient is being given slow IV fluids. No evidence of fluid overload. PHYSICAL EXAMINATION: HEENT: Head normocephalic, atraumatic. Eyes: Extraocular muscles are intact. Pupils are equal, round and reactive to light and accommodation. Ears: No lesions. Nose appeared normal. Throat: No exudate or erythema. NECK: Supple. No JVD, no carotid bruit. No lymphadenopathy or thyromegaly. LUNGS: Decreased breath sounds but clear to auscultation. Percussion note normal. Chest symmetrical. HEART: S1, S2, no S3. No murmurs. No cyanosis or clubbing. No ascites. Pulses: Dorsalis pedis and posterior tibial pulses +1 to +2 both sides. Atrial fibrillation. ABDOMEN: Soft. Nontender. Bowel sounds active. No CVA tenderness. No mass felt. EXTREMITIES: No edema. Full range of motion of all extremities, equal. NEUROLOGIC: No focal deficit. Cranial nerves II through XII are grossly intact. No headache, no double vision or headache. SKIN: Not dry. Intact. Turgor - normal. LYMPHATIC: No palpable lymph nodes/no lymphedema. MUSCULOSKELETAL: Normal joints with no swelling. Muscle tone is normal. The patient was seen and examined with Nurse Practitioner. TIME SPENT: More than 30 minutes. Plan and coordination of the patient's care discussed in the presence of nurse. ADORE
== END 2017-05-01 13:25 | disposition short-term general hospital (02) | DRG 152 ==
LOC: ED 19:24 → MEDSURG A 21:19
PROVIDERS: ADMIT Internal Medicine; ATTEND Internal Medicine
DX: J11.1 Influenza due to unidentified influenza virus with other respiratory manifestations (principal); G93.40 Encephalopathy, unspecified; N39.0 Urinary tract infection, site not specified; F02.81 Dementia in other diseases classified elsewhere, unspecified severity, with behavioral disturbance; J20.9 Acute bronchitis, unspecified; I50.9 Heart failure, unspecified; R50.9 Fever, unspecified; G30.1 Alzheimer's disease with late onset; I12.9 Hypertensive chronic kidney disease with stage 1 through stage 4 chronic kidney disease, or unspecified chronic kidney disease; E11.22 Type 2 diabetes mellitus with diabetic chronic kidney disease; N18.9 Chronic kidney disease, unspecified; G62.9 Polyneuropathy, unspecified; D64.9 Anemia, unspecified; B96.20 Unspecified Escherichia coli [E. coli] as the cause of diseases classified elsewhere; I34.0 Nonrheumatic mitral (valve) insufficiency; R47.9 Unspecified speech disturbances; I07.1 Rheumatic tricuspid insufficiency; R41.82 Altered mental status, unspecified; E86.0 Dehydration; E78.5 Hyperlipidemia, unspecified; Z16.24 Resistance to multiple antibiotics; Z86.73 Personal history of transient ischemic attack (TIA), and cerebral infarction without residual deficits; Z79.4 Long term (current) use of insulin; Z79.899 Other long term (current) drug therapy; Z87.891 Personal history of nicotine dependence; Z85.038 Personal history of other malignant neoplasm of large intestine; Z95.0 Presence of cardiac pacemaker; Z90.49 Acquired absence of other specified parts of digestive tract
CPT/HCPCS: 36415; 80053; 81001; 82803; 82962; 83605; 83880; 84145; 85025; 87040; 87081; 87086; 87186; 87804; 93005; 93010; 94640; 96365; 96366; 97802; 99284